=== PATIENT | female | born 2000 | race Caucasian/White ===

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

== ENCOUNTER 2021-03-12 04:26 | Inpatient (IN) | payer MEDICAID ==
[~2021-03-12] VITALS: Ht 152.4 cm; Wt 66.2 kg
[2021-03-12 05:56] LABS: UDS - AMPHET NEGATIVE QUAL (NEGATIVE); UDS - BARB NEGATIVE QUAL (NEGATIVE); UDS - BENZO NEGATIVE QUAL (NEGATIVE); UDS - COCAINE NEGATIVE QUAL (NEGATIVE); UDS - OPIATE NEGATIVE QUAL (NEGATIVE); UDS - PCP NEGATIVE QUAL (NEGATIVE); UDS - THC NEGATIVE QUAL (NEGATIVE)
[2021-03-12 06:15] VITALS: BP 133/83; Ht 152.4 cm; Wt 66.2 kg
[2021-03-12 06:33] LABS: BASOPHILS 0.1 % (0-2); EOSINOPHILS 0.2 % (0-7); HEMATOCRIT 30.5 % (36.0-48.0); HEMOGLOBIN 9.5 g/dL (12-16); IMMATURE GRANULOCYTES 0.2 % (0-5); LYMPHOCYTE ABS# 1.42 10x3/uL (1.18-3.74); LYMPHOCYTES 11.7 % (15-50); MCH 25.7 pg (26.0-34.0); MCHC 31.1 g/dL (31.0-37.0); MCV 82.4 fL (80.0-100.0); MEAN PLATELET VOLUME 10.5 fL (7.4-10.4); MONOCYTES 4.9 % (2-11); NEUTROPHIL ABS# 10.06 10x3/uL (1.56-6.13); NEUTROPHILS 82.9 % (40-80); PLATELET COUNT 221 10x3/uL (130-400); RDW 14.3 % (11.5-14.5); WBC 12.1 10x3/uL (4.8-10.8)
--- NOTE | 2021-03-12 11:30 | NUR ---
PT IN HIGH FOWLERS POSITION. FF, U/1 LIGHT RUBRA LOCHIA NOTED ON FUNMILAYO PAD. NO CLOTS EXPRESSED. FOB BACK TO ROOM AND PATIENT DENIES FURTHER NEEDS AT THIS TIME.
--- NOTE | 2021-03-12 12:30 | NUR ---
PT IN LEFT TILT POSITION RESTING WITH EYES CLOSED. RESP. EVEN AND UNLABORED. PT AROUSES TO VERBAL STIMULATION. FF, U/1, LIGHT RUBRA LOCHIA. DENIES NEEDS
--- NOTE | 2021-03-12 13:30 | NUR ---
PT BACK TO BED AFTER VOIDING PER SELF WITHOUT DIFFICULTY. FF, U/1. PT DENIES NEEDS AT THIS TIME. LUNCH TRAY IN ROOM
--- NOTE | 2021-03-12 16:40 | NUR ---
INFANT BACK TO ROOM. UP TO MOMS ARMS. VS OF PT OBTAINED AND STABLE. FF, U/1. LIGHT RUBRA LOCHIA NOTED. PT DENIES PAIN OR NEEDS AT THIS TIME. REGULAR TRAY AT BEDSIDE.
[2021-03-12 16:41] VITALS: BP 133/74
--- NOTE | 2021-03-12 18:15 | NUR ---
PT RESTING WITH EYES CLOSED. AROUSES TO VERBAL STIMULATION, DENIES PAIN OR NEEDS.
[2021-03-12 19:35] VITALS: BP 109/68
--- NOTE | 2021-03-12 19:35 | NUR ---
RN TO BEDSIDE. SHIFT ASSESSMENT COMPLETED AT THIS TIME. SEE FLOWSHEET. PT DENIES PAIN OR NEEDS AT THIS TIME. HR-RRR, PPP, LUNGS CTAB, FF U/2. SMALL LOCHIA RUBRA NOTED TO PERIPAD. BED LOW, WHEELS LOCKED, CALL LIGHT AND PHONE WITHIN REACH, SIDE RAILS UP X2.
[2021-03-12 19:40] VITALS: BP 126/78
--- NOTE | 2021-03-12 19:40 | NUR ---
RN TO BEDSIDE. SHIFT ASSESSMENT COMPLETED AT THIS TIME. SEE FLOWSHEET. PT DENIES PAIN OR NEEDS. HR-RRR, PPP, LUNGS CTAB, FF U/1. SCANT LOCHIA RUBRA NOTED TO PERIPAD. WILL CONTINUE TO MONITOR PRN. BED LOW, WHEELS LOCKED, CALL LIGHT AND PHONE WITHIN REACH, SIDE RAILS UP X2.
--- NOTE | 2021-03-12 21:55 | NUR ---
ROUNDS MADE. PT AND S.O. LYING IN BED TOGETHER. INFANT RESTING QUIETLY IN OPEN CRIB AT BEDSIDE. PT DENIES PAIN OR NEEDS. ASKS IF SL CAN BE D/C'D. EDUCATION PROVIDED AND PT AGREEABLE TO LEAVING SL UNTIL LABS ARE RESULTED TOMORROW MORNING. NO FURTHER NEEDS VOICED.
--- NOTE | 2021-03-12 23:32 | NUR ---
MOTRIN 600MG X1 TAB GIVEN PER ORDERS FOR HEADACHE PAIN RATED 2/10. PT DENIES FURTHER NEEDS AT THIS TIME.
--- NOTE | 2021-03-13 00:28 | NUR ---
ROUNDS MADE. PT SLEEPING SUPINE IN BED WITH S.O. IN BED WITH HER. INFANT ASLEEP IN OPEN CRIB AT BEDSIDE. PT LEFT UNDISTURBED AT THIS TIME.
--- NOTE | 2021-03-13 01:49 | NUR ---
PT REQUESTS AND RECEIVES PERIPADS AND MESH UNDERWEAR. NO FURTHER NEEDS VOICED. PT SITTING UP IN BED FEEDING AT THIS TIME. WILL CONTINUE TO MONITOR PRN.
--- NOTE | 2021-03-13 04:36 | NUR ---
ROUNDS MADE. PT SLEEPING. RESPIRATIONS EVEN AND UNLABORED. PT LEFT UNDISTURBED AT THIS TIME.
--- NOTE | 2021-03-13 06:24 | NUR ---
ROUNDS MADE. PT SLEEPING SUPINE IN HOSPITAL BED WITH S.O. IN BED WITH HER. ASLEEP IN OPEN CRIB AT BEDSIDE. PT LEFT UNDISTURBED.
--- NOTE | 2021-03-13 07:25 | NUR ---
THIS RN TO ROOM FOR SHIFT ASSESSMENT. PT IN BED, RESTING ON LEFT SIDE. RESP EVEN AND UNLABORED. RESTING IN [place]TE AT BEDSIDE. SRUx2, CL IN REACH. PT LEFT UNDISTURBED FOR REST.
--- NOTE | 2021-03-13 08:35 | NUR ---
THIS RN TO ROOM FOR SHIFT ASSESSMENT. PT SITTING UP ON BEDSIDE COUCH EATING BREAKFAST AND TALKING WITH SIG OTHER. STATES DR ASCENCIO JUST ROUNDED AND TOLD HER SHE MIGHT GO HOME TODAY. PT DENIES PAIN OR ANY NEEDS. INSTRUCTED WILL RETURN WHEN PT FINISHED EATING TO COMPLETE SHIFT ASSESSMENT.
[2021-03-13 09:13] VITALS: BP 122/85
[2021-03-13 09:13] LABS: BASOPHILS 0.1 % (0-2); EOSINOPHILS 0.6 % (0-7); HEMATOCRIT 28.8 % (36.0-48.0); HEMOGLOBIN 8.7 g/dL (12-16); IMMATURE GRANULOCYTES 0.2 % (0-5); LYMPHOCYTE ABS# 1.98 10x3/uL (1.18-3.74); MCH 25.3 pg (26.0-34.0); MCHC 30.2 g/dL (31.0-37.0); MCV 83.7 fL (80.0-100.0); MEAN PLATELET VOLUME 10.3 fL (7.4-10.4); MONOCYTES 5.7 % (2-11); NEUTROPHIL ABS# 6.41 10x3/uL (1.56-6.13); NEUTROPHILS 71.4 % (40-80); PLATELET COUNT 206 10x3/uL (130-400); RBC 3.44 10x6/uL (4.00-5.40); RDW 14.8 % (11.5-14.5)
--- NOTE | 2021-03-13 09:13 | NUR ---
THIS RN TO ROOM FOR SHIFT ASSESSMENT. SHIFT ASSESSMENT COMPLETED, VSS, SEE FLOWSHEET FOR DOC. PT DENIES HEAVY LOCHIA OR CLOTS, INSTRUCTED ON S/S TO REPORT, UNDERSTANDING VERBALIZED. FF, ML, U/3. SMALL RUBRA LOCHIA, NO CLOTS EXPELLED WITH MASSAGE. MILD GENERALIZED EDEMA NOTED TO LE BILAT, NON PITTING, PEDAL PULSES 2+ BILAT. POC DISCUSSED WITH PT, DENIES PAIN OR NEEDS AT THIS TIME. SRUx2, CL IN REACH. SIG OTHER IN ROOM WITH PT, RESTING IN BASS[place]ETTE.
--- NOTE | 2021-03-13 10:05 | NUR ---
LAB RESULTS CALLED TO DR ASCENCIO. ORDER RECEIVED FOR D/C TO HOME AND F/U IN 6 WEEKS.
--- NOTE | 2021-03-13 10:58 | NUR ---
THIS RN TO ROOM FOR PT CHECK. PT SITTING UP IN BED, WATCHING TV. REQUESTING IV OUT. RIGHT HAND PIV REMOVED WITHOUT INCIDENT, CATH INTACT, PRESSURE HELD AND BANDAID APPLIED. MOTRIN ADMIN PER ORDER PRN PAIN PER PT REQUEST DUE TO BACK PAIN RATED 4/10, SEE EMAR. PT DENIES FURTHER NEEDS. D/C TO HOME DISCUSSED. SRUx2, CL IN REACH.
--- NOTE | 2021-03-13 12:51 | NUR ---
THIS RN TO ROOM FOR PT CHECK. PT SITTING UP IN BED, IN [place]ETTE AT BEDSIDE. PT DENIES PAIN OR ANY NEEDS AT THIS TIME. SRUx2, CL IN REACH.
--- NOTE | 2021-03-13 18:01 | NUR ---
PT CALLS OUT MANAGER CORE LIGHT STATING NURSERY HAS FINISHED DISCHARGING INFANT AND THEY ARE READY TO BE DISCHARGED HOME. THIS RN TO ROOM. PT GIVEN DISCHARGE INSTRUCTIONS, VERBALIZES UNDERSTANDING AND DENIES QUESTIONS. PT SIGNS CHART COPIES. SIG OTHER PULLING CAR TO FRONT ENTRANCE FOR D/C TO HOME.
--- NOTE | 2021-03-13 18:05 | NUR ---
PT TAKEN OFF UNIT VIA W/C TO PRIVATE VEHICLE FOR D/C TO HOME WITH INFANT. SIG OTHER TO DRIVE THEM HOME.
[2021-03-14 06:11] LABS: RAPID PLASMA REAGIN Non Reactive (Non Reactive)
== END 2021-03-13 18:05 | disposition home or self-care (01) | DRG 807 ==
LOC: D.LDO 04:26 → D.LD 04:54
PROVIDERS: ADMIT Student in an Organized Health Care Education/Training Program; ATTEND Student in an Organized Health Care Education/Training Program
PROC: 10E0XZZ Delivery of Products of Conception, External Approach (ICD-10-PCS; principal; 2021-03-12)
PROC: 10907ZC Drainage of Amniotic Fluid, Therapeutic from Products of Conception, Via Natural or Artificial Opening (ICD-10-PCS; 2021-03-12)
DX: O80 Encounter for full-term uncomplicated delivery (principal); Z37.0 Single live birth; Z3A.37 37 weeks gestation of pregnancy